=== PATIENT | male | born 1965 | race Caucasian/White ===

== ENCOUNTER → 2016-07-14 | Outpatient (CLI) | payer BC ==
[~2016-07-14] VITALS: Ht 182.9 cm; Wt 86.1 kg
[2016-07-14] VITALS (11 sets, daily range): BP systolic 135–158; BP diastolic 77–97; PULSE 58–69
[~2016-07-14] MED LIST: BYSTOLIC10 MG PO; NORCO 325 MG-7.1 TAB PO
== END ==
LOC: COL.RAD 12:56
DX: C22.7 Other specified carcinomas of liver (principal); I10 Essential (primary) hypertension; Z79.899 Other long term (current) drug therapy
CPT/HCPCS: 25757

== ENCOUNTER 2018-03-02 09:02 | Outpatient (CLI) | payer BC ==
[~2018-03-02] VITALS: Ht 182.9 cm; Wt 81.8 kg
[2018-03-02 09:31] VITALS: BP 119/77; PULSE 65; TEMP 97.1
[2018-03-02] MEDS ORDERED: GLUCOPHAGE500 MG/TAB PO (12:14)
[2018-03-02] MEDS ORDERED: MONODOX100 PO (12:15)
[2018-03-02] MEDS ORDERED: INDERAL 10MG10 MG PO (12:16)
[2018-03-02] MEDS ORDERED: CELEXA10 MG PO (12:17)
[2018-03-02] MEDS ORDERED: TAGAMET400 MG PO (12:17)
--- NOTE | 2018-03-02 13:00 | NUR ---
Attemp to obtaine blood return,no blood return yet.Activase left in port for time ordered.
--- NOTE | 2018-03-02 14:10 | NUR ---
Blood flow obtained from port,flush per protocol.
== END 2018-03-02 14:30 | disposition home or self-care (01) ==
LOC: EUO 09:02
DX: C22.1 Intrahepatic bile duct carcinoma (principal)
CPT/HCPCS: J1644; J2997; Q9967

== ENCOUNTER 2018-05-16 01:15 | Emergency (ER) | payer BC ==
[~2018-05-16] VITALS: Ht 182.9 cm; Wt 81.8 kg
[~2018-05-16 01:15] MED LIST changes: +CELEXA10 MG PO; +GLUCOPHAGE500 MG/TAB PO; +INDERAL 10MG10 MG PO; +MONODOX100 PO; +TAGAMET400 MG PO
[2018-05-16 02:12] LABS: BASO % 0.7 % (0.0-2.0); EOS % 0.5 % (0-4.0); GRAN # 3.2 (1.4-6.5); GRAN % 73.7 % (42.2-75.2); HEMOGLOBIN 11.2 g/dl (13.5-18.0); LYMPH # 0.8 (1.2-3.4); LYMPH % 18.3 % (20.0-51.0); MEAN CELL VOLUME 95 fl (80.0-100.0); MEAN CORPUSCULAR HEMOGLOBIN 32 pg (27.0-31.0); MEAN CORPUSCULAR HGB CONC 34 g/dl (33.0-37.0); MEAN PLATELET VOLUME 9.4 fl (7.4-10.4); MONO # 0.3 (0.1-0.6); MONO % 5.9 % (1.7-9.3); PLATELET COUNT 256 K/mm3 (130-400); RED BLOOD COUNT 3.48 M/mm3 (4.20-5.60); REDCELL DISTRIBUTION WIDTH-CV 14.7 % (11.5-14.5)
[2018-05-16 02:15] LABS: HEMATOCRIT 33.1 % (42.0-52.0)
[2018-05-16 02:38] LABS: ALBUMIN 4.1 gm/dL (3.5-5.0); BILIRUBIN,TOTAL 0.7 mg/dL (0.0-1.0); CALCIUM 9.3 mg/dL (8.4-10.2); POTASSIUM 4.5 mmol/L (3.4-5.0)
[2018-05-16] MEDS ORDERED: BYSTOLIC10 MG PO (03:07)
[2018-05-16] MEDS ORDERED: XELODA150 MG PO (03:12)
[2018-05-16 04:14] VITALS: TEMP 98.7
[2018-05-16 05:08] VITALS: BP 109/75; PULSE 79
== END 2018-05-16 05:08 | disposition home or self-care (01) ==
LOC: COL.ER 01:15
PROVIDERS: Emergency Medicine
DX: B34.9 Viral infection, unspecified (principal); I10 Essential (primary) hypertension; C22.1 Intrahepatic bile duct carcinoma; Z79.84 Long term (current) use of oral hypoglycemic drugs
CPT/HCPCS: J1885; J2765; J3010; J7030

== ENCOUNTER → 2018-11-17 | Outpatient (CLI) | payer BC ==
[~2018-11-17] MED LIST changes: +XELODA150 MG PO
== END ==
LOC: COL.RAD 11:29
DX: C22.1 Intrahepatic bile duct carcinoma (principal); K80.20 Calculus of gallbladder without cholecystitis without obstruction

== ENCOUNTER → 2018-12-22 | Outpatient (CLI) | payer BC | LOC: COL.VAS 12:49 | DX: I34.0 Nonrheumatic mitral (valve) insufficiency (principal); R18.8 Other ascites ==

== ENCOUNTER 2019-01-16 06:40 | Outpatient (CLI) | payer BC ==
[~2019-01-16] VITALS: Ht 182.9 cm; Wt 85.5 kg
[~2019-01-16 06:40] MED LIST changes: +GLUCOPHAGE XR500 M1 PO; -GLUCOPHAGE500 MG/TAB PO; -INDERAL 10MG10 MG PO; +INDERAL 20MG20 MG PO; +TAGAMET200 MG PO; -TAGAMET400 MG PO
[2019-01-16] MEDS ORDERED: LASIX 20MG TABL20 MG PO (07:23)
[2019-01-16 07:37] VITALS: BP 130/72; PULSE 83; TEMP 97.3
[2019-01-16 08:20] VITALS: BP 133/85; PULSE 79; TEMP 98.7
--- NOTE | 2019-01-16 08:35 | NUR ---
Dismissal instructions gone over with patient and patient's spouse. Both verbalize understanding and all questions answered.
--- NOTE | 2019-01-16 08:40 | NUR ---
Patient dismissed to home via ambulation with . Patient and spouse leave thanking staff for services.
== END 2019-01-16 08:40 | disposition home or self-care (01) ==
LOC: SDCO 06:40
DX: J90 Pleural effusion, not elsewhere classified (principal); C22.1 Intrahepatic bile duct carcinoma; G47.33 Obstructive sleep apnea (adult) (pediatric); I10 Essential (primary) hypertension; Z88.2 Allergy status to sulfonamides; Z87.891 Personal history of nicotine dependence; Z79.4 Long term (current) use of insulin; Z80.8 Family history of malignant neoplasm of other organs or systems; Z98.52 Vasectomy status

== ENCOUNTER → 2019-08-10 | Outpatient (CLI) | payer BC ==
[~2019-08-10] MED LIST changes: +LASIX 20MG TABL20 MG PO
== END ==
LOC: ZCOL.LAB 18:25
DX: T80.219A Unspecified infection due to central venous catheter, initial encounter (principal)

== ENCOUNTER → 2019-08-10 | Outpatient (CLI) | payer BC | LOC: ZCOL.LAB 17:53 | DX: T80.219A Unspecified infection due to central venous catheter, initial encounter (principal) ==

== ENCOUNTER → 2019-08-24 | Outpatient (CLI) | payer BC ==
[~2019-08-24] VITALS: Ht 182.9 cm; Wt 79.4 kg
[~2019-08-24] MED LIST changes: +ALDACTONE50 MG PO
[2019-08-24 11:32] VITALS: BP 135/74; PULSE 79
[2019-08-24 12:25] VITALS: BP 137/80; PULSE 78
== END ==
LOC: COL.RAD 11:16
DX: C22.1 Intrahepatic bile duct carcinoma (principal); R14.0 Abdominal distension (gaseous)
CPT/HCPCS: 19804

== ENCOUNTER → 2019-09-21 | Outpatient (CLI) | payer BC ==
[~2019-09-21] VITALS: Ht 182.9 cm; Wt 78.1 kg
[2019-09-21 12:56] VITALS: BP 138/83; PULSE 83
[2019-09-21 14:04] VITALS: BP 139/79; PULSE 79
== END ==
LOC: COL.RAD 12:00
DX: C22.1 Intrahepatic bile duct carcinoma (principal)
CPT/HCPCS: 19804

== ENCOUNTER 2019-10-03 08:32 | Day surgery (SDC) | payer BC ==
[~2019-10-03] VITALS: Ht 182.9 cm; Wt 80.2 kg
[~2019-10-03 08:32] MED LIST changes: +DAZIDOX10 MG PO; +FENTANYL 25 MCG TD; +OXYCODONE H5 MG/5 ML PO
[2019-10-03 08:48] VITALS: BP 102/77; PULSE 88; TEMP 97.4
--- NOTE | 2019-10-03 10:15 | NUR ---
Patient is resting and awaits surgery. IV fluids infusing.
[2019-10-03 11:44] VITALS: BP 105/75; PULSE 73
--- NOTE | 2019-10-03 11:44 | NUR ---
Patient returns to room 6 per cart from surgery accompanied by Sweta BAIN and is awake and alert. Denies pain or nausea. IV fluids infusing. Dressing around the abdominal catheter dry. Siderails up x2 and call light in reach. Given water to drink.
[2019-10-03 11:59] VITALS: BP 106/66; PULSE 71
--- NOTE | 2019-10-03 11:59 | NUR ---
Dr. Ann in the room and abdominal pleurx catheter connected to the drainage container with immediate returns of yellow fluid. Patient shown how to connect container. Denies pain or nausea.
[2019-10-03 12:14] VITALS: BP 114/76; PULSE 71
--- NOTE | 2019-10-03 12:14 | NUR ---
Total of 2200 yellow fluid was drained from abdomen and cap placed back on pleurx drain. Tolerated the procedure well. Continues to deny pain or nausea. Given toast and is drinking more water.
[2019-10-03 12:29] VITALS: BP 110/77; PULSE 78
--- NOTE | 2019-10-03 12:29 | NUR ---
Room air sats 98% and tolerated toast well.
[2019-10-03 12:44] VITALS: BP 101/78; PULSE 78
--- NOTE | 2019-10-03 12:44 | NUR ---
IV discontinued and site is free of redness. Assisted the patient with dressing.
--- NOTE | 2019-10-03 12:55 | NUR ---
Dismissal instructions given and voices understanding of these. Instructed to continue all home medications.
--- NOTE | 2019-10-03 13:01 | NUR ---
Patient dismissed to home per private vehicle driven by friend and taken to the front door by wheelchair and assisted into car with instructions in hand and two drainage containers.
== END 2019-10-03 13:01 | disposition home or self-care (01) ==
LOC: SDCO 08:32
DX: C22.1 Intrahepatic bile duct carcinoma (principal); R18.0 Malignant ascites; I10 Essential (primary) hypertension; G47.33 Obstructive sleep apnea (adult) (pediatric); Z79.899 Other long term (current) drug therapy; Z80.7 Family history of other malignant neoplasms of lymphoid, hematopoietic and related tissues; Z92.21 Personal history of antineoplastic chemotherapy; Z51.5 Encounter for palliative care
CPT/HCPCS: A7048; C1729; J0690; J2704; J3010; J7120